=== PATIENT | female | born 1985 | race Asian ===

== ENCOUNTER 2022-11-15 01:49 | Emergency (ER) | payer MEDICAID ==
[~2022-11-15] VITALS: Ht 162.6 cm; Wt 59.0 kg
--- NOTE | 2022-11-15 02:05 | NUR ---
PATIENT [id number] C/O DANGER TO SELF. PATEIENT PLACED ON [employer] HOLD, SUICIDAL IDEATION. PATIENT IS A/O X 4, RR EVEN AND UNLABORED. PATIENT TAKEN TO ER BED 13, SI PRECAUTIONS IN PLACED. WILL CONTINUE TO MONITOR.
--- NOTE | 2022-11-15 02:14 | NUR ---
COVID SWAB COLLECTED
[2022-11-15 02:15] VITALS: BP 119/65
[2022-11-15 02:51] LABS: BASOPHILS # (AUTO) 0.1 K/uL (0.0-0.2); EOSINOPHILS % (AUTO) 4.9 % (0.0-6.0); HEMATOCRIT 40 % (33-45); HEMOGLOBIN 12.8 g/dL (11.5-14.8); LYMPHOCYTES # (AUTO) 1.5 K/uL (0.8-4.8); LYMPHOCYTES % (AUTO) 12.5 % (20.0-44.0); MEAN CORPUSCULAR HGB CONC 32 g/dl (31.0-36.0); MEAN CORPUSCULAR VOLUME 87 fL (82-100); MONOCYTES # (AUTO) 0.6 K/uL (0.1-1.30); MONOCYTES % (AUTO) 5.2 % (2.0-12.0); NEUTROPHILS # (AUTO) 9.3 K/uL (1.8-8.9); NEUTROPHILS % (AUTO) 76.4 % (43.0-81.0); PLATELET COUNT (AUTO) 339 K/uL (150-450); RED BLOOD CELL COUNT(AUTO) 4.55 MIL/uL (4.0-5.2); WHITE BLOOD COUNT (AUTO) 12.1 K/uL (4.3-11.0)
[2022-11-15 02:54] LABS: BILIRUBIN,URINE NEGATIVE (NEGATIVE); COLOR,URINE YELLOW (YELLOW); LEUKOCYTE ESTERASE ,URINE NEGATIVE (NEGATIVE); NITRITE, URINE POSITIVE (NEGATIVE); PROTEIN,URINE TRACE mg/dl (NEGATIVE); UGLUCOSE NEGATIVE (NEGATIVE)
[2022-11-15 02:56] LABS: BACTERIA,URINE Few /HPF (None Seen); RBC,URINE 0-2 /HPF (0-2); SQUAMOUS EPITHELIAL CELL,UR Few /HPF (None Seen)
[2022-11-15 03:13] LABS: ALANINE AMINOTRANSFERASE 17 U/L (12-78); ALBUMIN 4.1 g/dL (3.4-5.0); ALCOHOL, BLOOD < 3 mg/dL (0-0); ALKALINE PHOSPHATASE 65 U/L (46-116); ASPARTATE AMINOTRANSFERASE 16 U/L (15-37); BILIRUBIN,DIRECT 0.1 mg/dL (0.0-0.2); BILIRUBIN,TOTAL 0.3 mg/dL (0.2-1.0); CALCIUM, SERUM 9.4 mg/dL (8.5-10.1); CARBON DIOXIDE 28 mmol/L (21-32); CHLORIDE 106 mmol/L (98-107); CREATININE 1.2 mg/dL (0.6-1.3); GLUCOSE 77 mg/dL (74-106); POTASSIUM 3.6 mmol/L (3.5-5.1); SODIUM SERUM 141 mmol/L (136-145); TOTAL PROTEIN, SERUM 7.3 g/dL (6.4-8.2); UREA NITROGEN, BLOOD 14 mg/dL (7-18)
[2022-11-15 03:17] LABS: ACETAMINOPHEN 0 ug/ml (10-30)
[2022-11-15] MEDS ORDERED: LORAZEPAM INJ 2 MG/ML VIAL ONE (04:21)
[2022-11-15] MEDS ORDERED: LORAZEPAM INJ 2 MG/ML VIAL IM ONE (04:30)
[2022-11-15] MEDS ORDERED: HALOPERIDOL LACTATE INJ 5 MG/ML VIAL ONE (04:36)
[2022-11-15] MEDS ORDERED: HALOPERIDOL LACTATE INJ 5 MG/ML VIAL IM ONE (05:00)
--- NOTE | 2022-11-15 10:19 | NUR ---
DR. COREAS AT BEDSIDE.
--- NOTE | 2022-11-15 10:43 | NUR ---
Psych placement: SAMANTHA faxed clinicals to the following psych facilities for possibly psychiatric admission: [facility] TEL: [phone] fax: [phone] [facility] tel:[phone] FAX:[phone] [facility] fax:[phone] tel:[phone] [facility] TEL: [phone] [facility] SAMANTHA will follow up as needed.
[2022-11-15] MEDS ORDERED: LORAZEPAM 1 MG TABLET PO PRN (11:00)
--- NOTE | 2022-11-15 11:10 | NUR ---
PT ACCEPTED TO [facility].
--- NOTE | 2022-11-15 16:01 | NUR ---
Pt. was accepted to [facility] [[address] [address] [id number]; Unit TEL: [phone]] under the care of Dr. Maya in [facility], ROOM# 147/A . Nurse to nurse report to be called into: [phone]. SW notified Tk witt to set up transport.
--- NOTE | 2022-11-15 16:08 | NUR ---
[facility] CALLED FOR TRANSPORT ETA 1800 PER YENIFER.
--- NOTE | 2022-11-15 19:00 | NUR ---
TRANSPORTED TO [facility] IN STABLE CONDITION.
== END 2022-11-15 19:01 ==
LOC: ER 02:05
DX: F19.10 Other psychoactive substance abuse, uncomplicated (principal); Z20.822 Contact with and (suspected) exposure to COVID-19
CPT/HCPCS: 99285; 96372 ×2; 70450; 85025; 80048; 87086; 80076; 81001; 36415; 84702; 87426; 80143; 80320; 80307; J2060; J1630; C9803; G0480

== ENCOUNTER 2022-11-23 13:34 | Emergency (ER) | payer MEDICAID, OTHER ==
[~2022-11-23] VITALS: Ht 162.6 cm; Wt 59.0 kg
--- NOTE | 2022-11-23 13:45 | NUR ---
ELIANA 77 & [employer], IN CUSTODY, ON CITIZEN ARREST, FACE ON GROUND, MISSING TOOTH & FACIAL TRAUMA, REQUESTS MEDICAL CLEARANCE FOR BOOKING.
--- NOTE | 2022-11-23 15:00 | NUR ---
PARES - FATHER MARIBEL ROSARIO
--- NOTE | 2022-11-23 16:17 | NUR ---
URINE SAMPLE COLLECTED AND SENT TO LAB
[2022-11-23 16:45] VITALS: BP 135/80
--- NOTE | 2022-11-23 16:46 | NUR ---
Patient discharged WITH [employer] in stable condition.
== END 2022-11-23 16:40 ==
LOC: ER 13:42
DX: S00.33XA Contusion of nose, initial encounter (principal); S00.511A Abrasion of lip, initial encounter; R51.9 Headache, unspecified; J45.909 Unspecified asthma, uncomplicated; X58.XXXA Exposure to other specified factors, initial encounter; Y93.89 Activity, other specified; Y92.89 Other specified places as the place of occurrence of the external cause; Y99.8 Other external cause status
CPT/HCPCS: 70486-TC; 84703-TC